=== PATIENT | female | born 1975 | race Caucasian/White ===

== ENCOUNTER 2016-11-09 16:18 | Emergency (ER) | payer OTHER ==
[~2016-11-09] VITALS: Ht 165.1 cm; Wt 81.6 kg
--- NOTE | 2016-11-09 16:40 | NUR ---
PT CAME IN FOR RAPID HEART RATE. DENIES CHEST PAIN. OTHER VSS. PLACED ON MONITOR. TORNADO CHASER MARSII AT BS. IV ACCESS STARTED. RECEIVED VERBAL ORDERS FOR ADENOSINE RAPID IVP 6MG. ORDERS CARRIED OUT. HR CONVERTED TO SR 90S. PT STABLE. VSS. CLOSELY MONITORED.
[2016-11-09] MEDS ORDERED: ADENOSINE 6 MG/2 ML VIAL ONE ×2 (17:16→17:18)
[2016-11-09] MEDS ORDERED: IV NS 0.9% 1,000 ML ONE (17:17)
[2016-11-09] MEDS ORDERED: IV SET PRIMARY PUMP SET 1 EA INFUS.SET MC ONE (17:17)
--- NOTE | 2016-11-09 17:37 | NUR ---
[facility] - [facility] NS - START TIME 1738- END TIME - 8 ; PIV # 20 RIGHT AC RIGHT AC PIV # 20
--- NOTE | 2016-11-09 17:38 | NUR ---
IVF - NS - 1 LITER NS - START TIME 1737- END TIME - 1837 ; PIV # 20 RIGHT AC RIGHT AC PIV # 20
[2016-11-09 17:51] LABS: CALCIUM, SERUM 8.7 mg/dL (8.5-10.1); CREATININE 0.8 mg/dL (0.6-1.3); POTASSIUM 3.6 mmol/L (3.5-5.1)
[2016-11-09 17:56] LABS: BASOPHILS % (AUTO) 0.2 % (0.0-2.0); EOSINOPHILS # (AUTO) 0.1 /CMM (0.0-0.7); EOSINOPHILS % (AUTO) 0.8 % (0.0-6.0); HEMATOCRIT 41 % (33-45); HEMOGLOBIN 13.8 g/dL (11.5-14.8); LYMPHOCYTES # (AUTO) 1.8 /CMM (0.8-4.8); MEAN CORPUSCULAR HEMOGLOBIN 30 PG (26.0-33.0); MEAN CORPUSCULAR HGB CONC 34 g/dl (31.0-36.0); MEAN CORPUSCULAR VOLUME 88 fL (82-100); MONOCYTES # (AUTO) 0.3 /CMM (0.1-1.30); MONOCYTES % (AUTO) 4.4 % (2.0-12.0); NEUTROPHILS # (AUTO) 5.5 /CMM (1.8-8.9); NEUTROPHILS % (AUTO) 71.6 % (43.0-81.0); PLATELET COUNT (AUTO) 292 /CMM (150-450); RDW COEFFICIENT OF VARIATION 12.6 (11.5-15.0); RED BLOOD CELL COUNT(AUTO) 4.62 MIL/uL (4.0-5.2); WHITE BLOOD COUNT (AUTO) 7.7 K/uL (4.3-11.0)
[2016-11-09] MEDS ORDERED: ADENOSINE 6 MG/2 ML VIAL IVP ONE (18:00)
--- NOTE | 2016-11-09 18:33 | NUR ---
Patient discharged to home in stable condition. Written and verbal after care instructions given. Patient verbalizes understanding of instruction.
--- NOTE | 2016-11-09 18:33 | NUR ---
IV removed. Catheter intact and site benign. Pressure and 4x4 applied to site. No bleeding noted.
[2016-11-09 18:36] VITALS: BP 125/68
[2016-11-09] MEDS ORDERED: IV NS 0.9% 1,000 ML BAG IV ONE (19:00)
== END 2016-11-09 18:41 | disposition home or self-care (01) ==
LOC: ER 16:19
DX: I47.1 Supraventricular tachycardia (principal); Z88.2 Allergy status to sulfonamides
CPT/HCPCS: 36415; 80048-TC; 84443-TC; 85025-TC; A4606; J0153; J7030; Z7610